=== PATIENT | female | born 1970 | race Caucasian/White ===

== ENCOUNTER 2020-06-11 02:32 | Emergency (ER) | payer MEDICAID ==
[~2020-06-11] VITALS: Ht 165.1 cm; Wt 69.0 kg
[~2020-06-11 02:32] MED LIST: QUET100T PO
[2020-06-11 03:36] LABS: BASOPHILS % 0.6 % (0.0-2.0); EOSINOPHILS % 1.6 % (0.0-5.0); HEMOGLOBIN. 12.2 g/dL (12.0-16.0); LYMPHOCYTES % 16.8 % (20.0-50.0); MEAN PLATELET VOLUME 9.1 fl (7.4-10.4); MONOCYTES % 4.8 % (2.0-8.0); NEUTROPHILS % 76.2 % (40.0-76.0); PLATELET 252 x1000/uL (130-400); RED BLOOD CELL COUNT 4.35 mill/uL (4.2-5.4); RED CELL DISTRIBUTION WIDTH 13.9 % (11.6-14.6)
[2020-06-11 03:42] LABS: CHLORIDE 108 mEq/L (98-107)
[2020-06-11 05:56] VITALS: BP 146/82
== END 2020-06-11 06:36 | disposition home or self-care (01) ==
LOC: ER 02:32
DX: R53.1 Weakness (principal); F15.90 Other stimulant use, unspecified, uncomplicated; Z59.0 Homelessness; Z86.59 Personal history of other mental and behavioral disorders
CPT/HCPCS: 36415; 71045; 80053; 84484; 85025; 93005; 99285

== ENCOUNTER 2020-07-15 03:03 | Emergency (ER) | payer MEDICAID ==
[~2020-07-15] VITALS: Ht 170.2 cm; Wt 77.0 kg
[2020-07-15] MEDS ORDERED: ACETAMINOPHEN 325MG TABLET PO STA (03:20)
[2020-07-15 03:44] LABS: CLARITY URINE CLOUDY (CLEAR); COLOR URINE YELLOW (YELLOW); KETONES URINE TRACE (NEGATIVE); LEUKOCYTE ESTERASE URINE 2+ (NEGATIVE); NITRITE URINE POSITIVE (NEGATIVE); OCCULT BLOOD URINE NEGATIVE (NEGATIVE); PH URINE 5.5 (4.5-8.0); PROTEIN URINE NEGATIVE (NEGATIVE); SPECIFIC GRAVITY URINE 1.027 (1.005-1.030)
[2020-07-15] MEDS ORDERED: SULF1TAB48 PO (04:01)
[2020-07-15] MEDS ORDERED: NAPR-681 PO (04:01)
[2020-07-15 04:10] VITALS: BP 128/83
== END 2020-07-15 04:24 | disposition home or self-care (01) ==
LOC: ER 03:03
DX: M79.10 Myalgia, unspecified site (principal); F20.9 Schizophrenia, unspecified; F32.9 Major depressive disorder, single episode, unspecified; Z59.0 Homelessness
CPT/HCPCS: 81003; 99283

== ENCOUNTER 2020-08-13 02:21 | Emergency (ER) | payer MEDICAID ==
[~2020-08-13] VITALS: Ht 165.1 cm; Wt 75.0 kg
[~2020-08-13 02:21] MED LIST changes: +NAPR-681 PO; +SULF1TAB48 PO
[2020-08-13] MEDS ORDERED: ACET-2708 MT (02:47)
[2020-08-13] MEDS ORDERED: ACETAMINOPHEN 325MG TABLET PO ONE (03:00)
[2020-08-13 04:49] VITALS: BP 133/90
== END 2020-08-13 04:52 | disposition home or self-care (01) ==
LOC: ER 02:21
DX: M25.511 Pain in right shoulder (principal); G89.29 Other chronic pain; F15.10 Other stimulant abuse, uncomplicated; F32.9 Major depressive disorder, single episode, unspecified; F20.9 Schizophrenia, unspecified; Z79.899 Other long term (current) drug therapy
CPT/HCPCS: 99283

== ENCOUNTER 2020-10-20 21:51 | Emergency (ER) | payer OTHER, MEDICAID ==
[~2020-10-20] VITALS: Ht 170.2 cm; Wt 67.9 kg
[~2020-10-20 21:51] MED LIST changes: +ACET-2708 MT
[2020-10-20] MEDS ORDERED: ONDANSETRON 4MG ODT PO STA (22:41)
[2020-10-20] MEDS ORDERED: ACETAMINOPHEN 325MG TABLET PO STA (22:41)
[2020-10-20] MEDS ORDERED: TOPUD MT (23:22)
[2020-10-20 23:51] VITALS: BP 136/82
== END 2020-10-20 23:51 | disposition home or self-care (01) ==
LOC: ER 21:51
DX: M79.10 Myalgia, unspecified site (principal); T88.1XXA Other complications following immunization, not elsewhere classified, initial encounter; F31.9 Bipolar disorder, unspecified; J44.9 Chronic obstructive pulmonary disease, unspecified; F20.9 Schizophrenia, unspecified; Z90.49 Acquired absence of other specified parts of digestive tract
CPT/HCPCS: 71045; 81025; 87426; 99284; Q0162

== ENCOUNTER 2021-04-09 22:41 | Emergency (ER) | payer MEDICAID, OTHER ==
[~2021-04-09 22:41] MED LIST changes: +TOPUD MT
== END 2021-04-10 01:51 | disposition left against medical advice (07) ==
LOC: ER 22:41
DX: Z53.21 Procedure and treatment not carried out due to patient leaving prior to being seen by health care provider (principal)

== ENCOUNTER 2021-06-24 21:56 | Emergency (ER) | payer OTHER ==
[~2021-06-24] VITALS: Ht 167.6 cm; Wt 70.0 kg
[2021-06-24 22:47] VITALS: BP 130/75
== END 2021-06-25 01:59 | disposition left against medical advice (07) ==
LOC: ER 21:56
DX: Z53.21 Procedure and treatment not carried out due to patient leaving prior to being seen by health care provider (principal); F31.9 Bipolar disorder, unspecified; J44.9 Chronic obstructive pulmonary disease, unspecified; J40 Bronchitis, not specified as acute or chronic; F20.9 Schizophrenia, unspecified; Z90.49 Acquired absence of other specified parts of digestive tract

== ENCOUNTER 2021-06-26 02:47 | Emergency (ER) | payer OTHER ==
[~2021-06-26] VITALS: Ht 170.2 cm; Wt 64.6 kg
[2021-06-26 03:20] VITALS: BP 137/80
[2021-06-26] MEDS ORDERED: ACETAMINOPHEN 325MG TABLET PO ONE (06:00)
== END 2021-06-26 07:18 | disposition home or self-care (01) ==
LOC: ER 02:47
DX: R68.89 Other general symptoms and signs (principal); Z00.00 Encounter for general adult medical examination without abnormal findings; F31.9 Bipolar disorder, unspecified; J44.9 Chronic obstructive pulmonary disease, unspecified; F20.9 Schizophrenia, unspecified; Z90.49 Acquired absence of other specified parts of digestive tract; Z79.899 Other long term (current) drug therapy; F15.10 Other stimulant abuse, uncomplicated
CPT/HCPCS: 99281

== ENCOUNTER 2021-07-24 02:26 | Emergency (ER) | payer OTHER ==
[~2021-07-24] VITALS: Ht 170.2 cm; Wt 66.0 kg
[2021-07-24 02:40] VITALS: BP 139/86
[2021-07-24] MEDS ORDERED: HYDR-4622 TP (04:19)
[2021-07-24] MEDS ORDERED: CETI10TA6 PO (04:19)
== END 2021-07-24 04:59 | disposition home or self-care (01) ==
LOC: ER 02:26
DX: S60.562A Insect bite (nonvenomous) of left hand, initial encounter (principal); S60.561A Insect bite (nonvenomous) of right hand, initial encounter; W57.XXXA Bitten or stung by nonvenomous insect and other nonvenomous arthropods, initial encounter; Y93.89 Activity, other specified; Y92.89 Other specified places as the place of occurrence of the external cause; Y99.8 Other external cause status; Z59.00 Homelessness unspecified; F31.9 Bipolar disorder, unspecified; J44.9 Chronic obstructive pulmonary disease, unspecified; F20.9 Schizophrenia, unspecified; Z90.49 Acquired absence of other specified parts of digestive tract; F15.10 Other stimulant abuse, uncomplicated
CPT/HCPCS: 99281; 99282

== ENCOUNTER 2021-08-18 15:56 | Emergency (ER) | payer OTHER ==
[~2021-08-18] VITALS: Ht 167.6 cm; Wt 68.0 kg
[~2021-08-18 15:56] MED LIST changes: +CETI10TA6 PO; +HYDR-4622 TP
[2021-08-18 16:00] VITALS: BP 141/85
== END 2021-08-18 19:21 | disposition home or self-care (01) ==
LOC: ER 15:56
DX: S40.812A Abrasion of left upper arm, initial encounter (principal); S40.811A Abrasion of right upper arm, initial encounter; S00.411A Abrasion of right ear, initial encounter; F15.10 Other stimulant abuse, uncomplicated; R09.81 Nasal congestion; F31.9 Bipolar disorder, unspecified; J44.9 Chronic obstructive pulmonary disease, unspecified; F20.9 Schizophrenia, unspecified; X58.XXXA Exposure to other specified factors, initial encounter; Y93.9 Activity, unspecified; Y92.9 Unspecified place or not applicable; Z90.49 Acquired absence of other specified parts of digestive tract
CPT/HCPCS: 99281

== ENCOUNTER 2021-09-01 14:38 | Emergency (ER) | payer OTHER ==
[~2021-09-01] VITALS: Ht 165.1 cm; Wt 61.0 kg
[2021-09-01 15:09] VITALS: BP 129/84
[2021-09-01] MEDS ORDERED: DIPH103G TP (17:35)
== END 2021-09-01 18:49 | disposition left against medical advice (07) ==
LOC: ER 14:38
DX: Z53.21 Procedure and treatment not carried out due to patient leaving prior to being seen by health care provider (principal); F41.9 Anxiety disorder, unspecified; J45.909 Unspecified asthma, uncomplicated; J44.9 Chronic obstructive pulmonary disease, unspecified; E78.00 Pure hypercholesterolemia, unspecified; F20.9 Schizophrenia, unspecified; F31.9 Bipolar disorder, unspecified

== ENCOUNTER 2021-12-18 20:03 | Emergency (ER) | payer OTHER ==
[~2021-12-18] VITALS: Ht 162.6 cm; Wt 65.0 kg
[2021-12-18 20:05] VITALS: BP 130/109
[2021-12-19] MEDS ORDERED: GUAI-450 MT (01:47)
== END 2021-12-19 02:36 | disposition home or self-care (01) ==
LOC: ER 20:03
DX: J06.9 Acute upper respiratory infection, unspecified (principal); R05.9 Cough, unspecified; J45.909 Unspecified asthma, uncomplicated; F20.9 Schizophrenia, unspecified; F15.10 Other stimulant abuse, uncomplicated; Z59.00 Homelessness unspecified; Z20.822 Contact with and (suspected) exposure to COVID-19
CPT/HCPCS: 87426; 87804; 99283; C9803

== ENCOUNTER 2023-04-11 20:45 | Emergency (ER) | payer OTHER ==
[~2023-04-11] VITALS: Ht 170.2 cm; Wt 81.0 kg
[~2023-04-11 20:45] MED LIST changes: +GUAI-450 MT
[2023-04-11 21:16] VITALS: O2SAT 99
[2023-04-11 21:58] LABS: BASOPHILS % 0.4 % (0.0-2.0); EOSINOPHILS % 1.3 % (0.0-5.0); HEMATOCRIT. 40.3 % (36.0-48.0); HEMOGLOBIN. 13.2 g/dL (12.0-16.0); LYMPHOCYTES % 15.7 % (20.0-50.0); MEAN CORPUSCULAR HEMOGLOBIN 26.6 pg (28.0-32.0); MEAN CORPUSCULAR HGB CONC 32.9 g/dL (31.0-37.0); MEAN CORPUSCULAR VOLUME 80.9 fL (81.0-99.0); MEAN PLATELET VOLUME 7.9 fl (7.4-10.4); MONOCYTES % 4.4 % (2.0-8.0); NEUTROPHILS % 78.2 % (40.0-76.0); PLATELET 342 x1000/uL (130-400); RED BLOOD CELL COUNT 4.98 mill/uL (4.2-5.4); RED CELL DISTRIBUTION WIDTH 16.5 % (11.6-14.6); WHITE BLOOD COUNT 13.8 x1000/uL (4.5-11.0)
[2023-04-11 21:59] LABS: CLARITY URINE CLEAR (CLEAR); COLOR URINE YELLOW (YELLOW); GLUCOSE URINE NEGATIVE (NEGATIVE); KETONES URINE NEGATIVE (NEGATIVE); LEUKOCYTE ESTERASE URINE 1+ (NEGATIVE); NITRITE URINE NEGATIVE (NEGATIVE); OCCULT BLOOD URINE NEGATIVE (NEGATIVE); PROTEIN URINE NEGATIVE (NEGATIVE); SPECIFIC GRAVITY URINE 1.018 (1.005-1.030)
[2023-04-11 22:12] LABS: ACETAMINOPHEN < 2 ug/mL (10-30); ALANINE AMINOTRANSFERASE < 7 IU/L (10-49); ALBUMIN 4.7 g/dL (3.2-4.8); ASPARTATE AMINOTRANSFERASE 19 IU/L (<34); BILIRUBIN TOTAL 0.3 mg/dL (0.1-1.0); CALCIUM 9.3 mg/dL (8.7-10.4); CARBON DIOXIDE 26 mEq/L (21-32); CHLORIDE 104 mEq/L (98-107); CREATININE 0.6 mg/dL (0.6-1.0); GLUCOSE 73 mg/dL (70-105); POTASSIUM 3.6 mEq/L (3.5-5.1); PROTEIN TOTAL 8.8 g/dL (6.0-8.3); SODIUM 138 mEq/L (136-145); UREA NITROGEN BLOOD 17 mg/dL (9-23)
[2023-04-11 22:21] LABS: *AMPHETAMINES SCREEN URINE PRESUMPTIVE POSITIVE (NEGATIVE); *BARBITURATES SCREEN URINE NEGATIVE (NEGATIVE); *BENZODIAZEPINES SCREEN URINE NEGATIVE (NEGATIVE); *COCAINE SCREEN URINE NEGATIVE (NEGATIVE); CANNABINOID URINE SCREEN PRESUMPTIVE POSITIVE (NEGATIVE); ECSTASY MDMA SCREEN URINE NEGATIVE (NEGATIVE); METHADONE URINE SCREEN Neg (NEGATIVE); OPIATES URINE SCREEN NEGATIVE (NEGATIVE); PHENCYCLIDINE URINE SCREEN NEGATIVE (NEGATIVE)
[2023-04-11 22:23] LABS: BACTERIA URINE 1+; RBC URINE 0-2 /hpf (0-2); SQUAMOUS EPITHELIAL CELL URINE FEW /lpf (RARE/1+)
[2023-04-11 22:24] LABS: WBC URINE 15-25 /hpf (0-2)
[2023-04-12] MEDS: NITROFURANTOIN 100MG M/M CAPSULE PO SCH (09:15)
[2023-04-12] MEDS: OLANZAPINE 5MG TABLET ODT PO SCH (11:47)
[2023-04-12 20:12] VITALS: BP 100/70; PULSE 64; RESP 16; TEMP 97.5
== END 2023-04-12 20:28 ==
LOC: ER 20:54
DX: R45.851 Suicidal ideations (principal); N39.0 Urinary tract infection, site not specified; F12.90 Cannabis use, unspecified, uncomplicated; F15.90 Other stimulant use, unspecified, uncomplicated; J45.909 Unspecified asthma, uncomplicated; F20.9 Schizophrenia, unspecified; F14.90 Cocaine use, unspecified, uncomplicated; Z20.822 Contact with and (suspected) exposure to COVID-19
CPT/HCPCS: 36415; 80053; 80305; 80307; 80320; 80329; 81003; 85025; 87077; 87186; 87426; 99285; G0480

== ENCOUNTER 2024-03-21 14:01 | Emergency (ER) | payer MEDICAID, OTHER ==
[~2024-03-21] VITALS: Ht 167.6 cm; Wt 73.0 kg
[2024-03-21 14:07] VITALS: BP 145/99; PULSE 89; RESP 18; TEMP 37.1; O2SAT 99
== END 2024-03-21 15:29 | disposition left against medical advice (07) ==
LOC: ER 14:01
DX: F99 Mental disorder, not otherwise specified (principal); Z53.21 Procedure and treatment not carried out due to patient leaving prior to being seen by health care provider